=== PATIENT | male | born 1950 | race Caucasian/White ===

== ENCOUNTER 2016-04-22 13:01 | Inpatient (IN) | payer OTHER ==
[~2016-04-22] VITALS: Ht 185.4 cm; Wt 84.1 kg
[2016-04-22] MEDS ORDERED: ATORVASTATIN CA40 MG PO (13:22)
[2016-04-22] MEDS ORDERED: LO-DOSE ASPIRIN81 M2 PO (13:22)
[2016-04-22] MEDS ORDERED: LISINOPRIL20 MG PO (13:23)
[2016-04-22] MEDS ORDERED: CALCIUM 500 MG1 EACH PO (13:23)
[2016-04-22] MEDS ORDERED: VENTOLIN HFA18 GM IH (13:26)
[2016-04-22] MEDS ORDERED: OXYCODONE HCL30 MG PO (13:26)
[2016-04-22 13:38] LABS: HEMATOCRIT 36.1 % (38.0-50.0); MCH 31.9 PG (29.0-34.0); MCHC 33.8 G/DL (30.0-36.0); PLATELET COUNT 365 K/uL (156-360); RBC DIS.WIDTH-CV 12.4 % (11.8-14.6); RBC DIS.WIDTH-SD 41.5 % (39-53); RED BLOOD COUNT 3.82 M/uL (4.00-5.50); WHITE BLOOD COUNT 13.9 K/uL (4.1-10.2)
[2016-04-22 13:43] LABS: BASOPHIL COUNT 0.1 K/uL (0-0.1); EOSINOPHIL (%) 0 % (0-5); IMMATURE GRANULOCYTE (%) 0.4 % (0.0-0.7); IMMATURE GRANULOCYTE COUNT 0.5 K/uL; LYMPHOCYTE COUNT 2.3 K/uL (1.0-2.8); MONOCYTE COUNT 1.8 K/uL (0-0.8); NEUTROPHIL (%) 69.7 % (45-76); NEUTROPHIL COUNT 9.7 K/uL (1.8-6.4)
[2016-04-22 13:46] LABS: MCV 94.5 FL (86-99)
[2016-04-22 13:50] LABS: CHLORIDE 101 mEq/L (99-109); POTASSIUM 4.9 mEq/L (3.7-5.4); SODIUM 136 mEq/L (136-147)
[2016-04-22 13:51] LABS: GLUCOSE 123 mg/dL (70-99)
[2016-04-22 13:53] LABS: ANION GAP 10 MEQ/L (2-14)
[2016-04-22 13:55] LABS: GFR ESTIMATE (CALCULATED) > 59 mL/min/
[2016-04-22 13:56] LABS: UREA NITROGEN (BUN) 8 mg/dL (9-23)
[2016-04-22 14:02] LABS: TROP-I INTERPRETATION NEGATIVE; TROPONIN-I < 0.01 ng/mL (0.0-0.30)
[2016-04-22 15:01] LABS: TOTAL BILIRUBIN 0.5 mg/dL (0.0-1.0)
[2016-04-22 15:03] LABS: ALKALINE PHOSPHATASE 101 IU/L (3-129)
[2016-04-22 15:05] LABS: DIRECT BILIRUBIN 0.3 mg/dL (0.0-0.3)
[2016-04-22] MEDS ORDERED: ZINC50 M1 PO (16:35)
[2016-04-22] MEDS ORDERED: MAGNESIUM OXID500 MG PO (16:36)
[2016-04-22 17:03] LABS: INFLUENZA A VIRAL ANTIGEN NEGATIVE; INFLUENZA B VIRAL ANTIGEN NEGATIVE
[2016-04-22 22:24] VITALS: BP 163/74
[2016-04-23 01:20] LABS: TROP-I INTERPRETATION NEGATIVE; TROPONIN-I < 0.01 ng/mL (0.0-0.30)
[2016-04-23 03:24] VITALS: BP 135/73
[2016-04-23 06:44] LABS: HEMATOCRIT 31.4 % (38.0-50.0); MCH 32.1 PG (29.0-34.0); MCHC 33.8 G/DL (30.0-36.0); MCV 95.2 FL (86-99); MEAN PLAT.VOLUME 10.4 uM^3 (9.0-12.4); PLATELET COUNT 389 K/uL (156-360); RBC DIS.WIDTH-CV 12.5 % (11.8-14.6); RBC DIS.WIDTH-SD 43.4 % (39-53); WHITE BLOOD COUNT 16.8 K/uL (4.1-10.2)
[2016-04-23 07:09] LABS: ANION GAP 9 MEQ/L (2-14); CHLORIDE 101 MEQ/L (99-109); GFR ESTIMATE (CALCULATED) > 59 mL/min/; GLUCOSE 141 mg/dL (70-99); POTASSIUM 4.6 MEQ/L (3.7-5.4); SAMPLE HEMOLYSIS CHECK 0; SAMPLE ICTERIC CHECK 0; SAMPLE LIPEMIA CHECK 0; SODIUM 135 MEQ/L (136-147); UREA NITROGEN (BUN) 9 mg/dL (9-23)
[2016-04-23 07:13] LABS: TROP-I INTERPRETATION NEGATIVE; TROPONIN-I 0.01 ng/mL (0.0-0.30)
[2016-04-23 07:15] LABS: EOSINOPHIL (%) 0 % (0-5); IMMATURE GRANULOCYTE (%) 0.4 % (0.0-0.7); IMMATURE GRANULOCYTE COUNT 0.1 K/uL; LYMPHOCYTE COUNT 1.9 K/uL (1.0-2.8); MONOCYTE (%) 10.4 % (3-12); MONOCYTE COUNT 1.8 K/uL (0-0.8); NEUTROPHIL (%) 77.7 % (45-76); NEUTROPHIL COUNT 13.1 K/uL (1.8-6.4)
[2016-04-23 07:25] VITALS: BP 156/82
[2016-04-23 08:04] LABS: ADD MIUA? YES; BILIRUBIN NEGATIVE; BLOOD MODERATE; COLOR YELLOW ((YELLOW)); GLUCOSE (STRIP) NEGATIVE; KETONES NEGATIVE; LEUKOCYTES NEGATIVE; NITRITE NEGATIVE; PROTEIN (STRIP) NEGATIVE; SPECIFIC GRAVITY 1.018 (1.000-1.030); UROBILINOGEN 0.2 MG/DL (0.2-1.0)
[2016-04-23 08:51] LABS: BACTERIA NONE SEEN /HPF; EPITHELIAL CELLS RARE /HPF; MUCUS TRACE /LPF; UCUL ADDED? NO; WHITE BLOOD CELLS 0-5 /HPF (0-5)
[2016-04-23 09:11] LABS: INTERNAL CONTROL VALID? YES
[2016-04-23 11:30] VITALS: BP 138/71
[2016-04-23 12:51] LABS: BASE EXCESS 2.6 mEq/L (-3 to +3); BICARBONATE 26.2 mEq/L (22-26); CARBOXY HGB 1.8 % (0-5); COMMENTS - BLOOD GASES A+C+; METHEMOGLOBIN 1.7 % (0-1.5); PCO2 36 mm Hg (35-45); PO2 54 mm Hg (80-100); SITE RR; pH 7.47 (7.35-7.45)
[2016-04-23 12:52] LABS: DEVICE NC; O2 FLOW 3 L/MIN; TOTAL RESP RATE 22 resp/min
[2016-04-23 15:20] VITALS: BP 156/72
[2016-04-23 20:00] VITALS: BP 149/72
[2016-04-24] VITALS: BP 139/65
[2016-04-24 04:00] VITALS: BP 130/60
[2016-04-24 07:50] VITALS: BP 133/62
[2016-04-24 11:42] VITALS: BP 140/71
[2016-04-24 15:46] VITALS: BP 176/87
[2016-04-24 20:17] VITALS: BP 168/86
[2016-04-25] VITALS (7 sets, daily range): BP systolic 146–178; BP diastolic 69–89
[2016-04-25 03:59] LABS: MEAN PLAT.VOLUME 9.9 uM^3 (9.0-12.4); PLATELET COUNT 404 K/uL (156-360)
[2016-04-25 04:09] LABS: HEMATOCRIT 32.5 % (38.0-50.0); MCH 32.5 PG (29.0-34.0); MCHC 33.8 G/DL (30.0-36.0); MCV 96.2 FL (86-99); RBC DIS.WIDTH-CV 12.5 % (11.8-14.6); RBC DIS.WIDTH-SD 42.3 % (39-53); RED BLOOD COUNT 3.38 M/uL (4.00-5.50); WHITE BLOOD COUNT 31.3 K/uL (4.1-10.2)
[2016-04-25 04:10] LABS: CHLORIDE 105 mEq/L (99-109); POTASSIUM 4.6 mEq/L (3.7-5.4); SODIUM 140 mEq/L (136-147)
[2016-04-25 04:11] LABS: MAGNESIUM 2.1 mg/dL (1.3-2.7)
[2016-04-25 04:12] LABS: GLUCOSE 148 mg/dL (70-99)
[2016-04-25 04:13] LABS: ANION GAP 10 MEQ/L (2-14)
[2016-04-25 04:16] LABS: GFR ESTIMATE (CALCULATED) > 59 mL/min/
[2016-04-25 04:17] LABS: UREA NITROGEN (BUN) 13 mg/dL (9-23)
[2016-04-25 05:26] LABS: VANCOMYCIN, TROUGH 12.8 MCG/ML (10-20)
[2016-04-25 05:59] LABS: GFR ESTIMATE (CALCULATED) > 59 mL/min/
[2016-04-26] VITALS (9 sets, daily range): BP systolic 151–191; BP diastolic 74–94
[2016-04-26 04:03] LABS: HEMATOCRIT 32.3 % (38.0-50.0); MCH 32.2 PG (29.0-34.0); MCHC 33.7 G/DL (30.0-36.0); MCV 95.3 FL (86-99); PLATELET COUNT 420 K/uL (156-360); RBC DIS.WIDTH-CV 12.6 % (11.8-14.6); RBC DIS.WIDTH-SD 42.1 % (39-53); RED BLOOD COUNT 3.39 M/uL (4.00-5.50); WHITE BLOOD COUNT 28.2 K/uL (4.1-10.2)
[2016-04-26 04:06] LABS: EOSINOPHIL (%) 0 % (0-5); IMMATURE GRANULOCYTE (%) 0.5 % (0.0-0.7); IMMATURE GRANULOCYTE COUNT 1.4 K/uL; LYMPHOCYTE COUNT 1.6 K/uL (1.0-2.8); MONOCYTE (%) 2.8 % (3-12); MONOCYTE COUNT 0.8 K/uL (0-0.8); NEUTROPHIL (%) 90.8 % (45-76); NEUTROPHIL COUNT 25.7 K/uL (1.8-6.4)
[2016-04-26 04:13] LABS: CHLORIDE 103 mEq/L (99-109); POTASSIUM 4.3 mEq/L (3.7-5.4); SODIUM 137 mEq/L (136-147)
[2016-04-26 04:15] LABS: GLUCOSE 160 mg/dL (70-99)
[2016-04-26 04:16] LABS: ANION GAP 12 MEQ/L (2-14)
[2016-04-26 04:19] LABS: GFR ESTIMATE (CALCULATED) > 59 mL/min/; UREA NITROGEN (BUN) 14 mg/dL (9-23)
[2016-04-27 06:59] LABS: ANION GAP 9 MEQ/L (2-14); CHLORIDE 100 MEQ/L (99-109); EOSINOPHIL (%) 0 % (0-5); GFR ESTIMATE (CALCULATED) > 59 mL/min/; GLUCOSE 157 mg/dL (70-99); HEMATOCRIT 29.9 % (38.0-50.0); IMMATURE GRANULOCYTE (%) 0.4 % (0.0-0.7); IMMATURE GRANULOCYTE COUNT 0.1 K/uL; LYMPHOCYTE COUNT 1.5 K/uL (1.0-2.8); MCH 32.6 PG (29.0-34.0); MCHC 34.1 G/DL (30.0-36.0); MCV 95.5 FL (86-99); MEAN PLAT.VOLUME 10.3 uM^3 (9.0-12.4); MONOCYTE (%) 3.9 % (3-12); MONOCYTE COUNT 0.8 K/uL (0-0.8); NEUTROPHIL (%) 88.5 % (45-76); NEUTROPHIL COUNT 17.9 K/uL (1.8-6.4); PLATELET COUNT 385 K/uL (156-360); POTASSIUM 4.7 MEQ/L (3.7-5.4); RBC DIS.WIDTH-CV 12.8 % (11.8-14.6); RBC DIS.WIDTH-SD 44.7 % (39-53); RED BLOOD COUNT 3.13 M/uL (4.00-5.50); SAMPLE HEMOLYSIS CHECK 0; SAMPLE ICTERIC CHECK 0; SAMPLE LIPEMIA CHECK 0; SODIUM 137 MEQ/L (136-147); UREA NITROGEN (BUN) 17 mg/dL (9-23); WHITE BLOOD COUNT 20.3 K/uL (4.1-10.2)
[2016-04-27 07:38] VITALS: BP 163/79
[2016-04-27 11:43] VITALS: BP 153/77
[2016-04-27 15:33] VITALS: BP 165/80
[2016-04-27 19:45] VITALS: BP 168/84
[2016-04-27 23:30] VITALS: BP 135/65
[2016-04-28 04:30] VITALS: BP 126/69
[2016-04-28 06:49] VITALS: BP 162/73
[2016-04-28 06:56] LABS: EOSINOPHIL (%) 0 % (0-5); HEMATOCRIT 29.8 % (38.0-50.0); IMMATURE GRANULOCYTE (%) 0.8 % (0.0-0.7); IMMATURE GRANULOCYTE COUNT 0.2 K/uL; INSTRUMENT ABS NEUTROPHIL CT 17.1 K/uL; MCH 31.7 PG (29.0-34.0); MCHC 33.2 G/DL (30.0-36.0); MCV 95.5 FL (86-99); MEAN PLAT.VOLUME 10.3 uM^3 (9.0-12.4); MONOCYTE (%) 3.9 % (3-12); MONOCYTE COUNT 0.8 K/uL (0-0.8); NEUTROPHIL (%) 80.8 % (45-76); NEUTROPHIL COUNT 17.1 K/uL (1.8-6.4); PLATELET COUNT 384 K/uL (156-360); RBC DIS.WIDTH-CV 12.6 % (11.8-14.6); RBC DIS.WIDTH-SD 43.8 % (39-53); RED BLOOD COUNT 3.12 M/uL (4.00-5.50); WHITE BLOOD COUNT 21.1 K/uL (4.1-10.2)
[2016-04-28 11:42] VITALS: BP 150/78
[2016-04-28 15:57] VITALS: BP 141/77
[2016-04-28] MEDS ORDERED: ADVAIR HFA120 INHALA IH (16:36)
[2016-04-28] MEDS ORDERED: LEVOFLOXACIN500 MG PO (16:36)
[2016-04-28] MEDS ORDERED: PREDNISONE10 MG PO (16:36)
[2016-04-28] MEDS ORDERED: SPIRIVA RESPIMAT4 GM IH (16:36)
[2016-04-28] MEDS ORDERED: LISINOPRIL40 MG PO (16:36)
== END 2016-04-28 20:00 | disposition home or self-care (01) | DRG 189 ==
LOC: EME 13:01 → 2EAST 20:58 → EDOF 20:58 → 2EAST 22:21
PROVIDERS: Emergency Medicine; Hospitalist; Internal Medicine; Physician Assistant
DX: J96.01 Acute respiratory failure with hypoxia (principal); J44.0 Chronic obstructive pulmonary disease with (acute) lower respiratory infection; J15.9 Unspecified bacterial pneumonia; J44.1 Chronic obstructive pulmonary disease with (acute) exacerbation; B37.0 Candidal stomatitis; D64.9 Anemia, unspecified; R91.8 Other nonspecific abnormal finding of lung field; R31.29 Other microscopic hematuria; I10 Essential (primary) hypertension; E78.00 Pure hypercholesterolemia, unspecified; G89.29 Other chronic pain; F17.210 Nicotine dependence, cigarettes, uncomplicated; Z79.82 Long term (current) use of aspirin
CPT/HCPCS: 36600; 71010; 71020; 71275; 80048; 80076; 80198; 80202; 81003; 82565; 82803; 83605; 83735; 83880; 84484; 85025; 85027; 87040; 87070; 87077; 87106; 87205; 87449; 87502; 87801; 93005; 93306; 94640; 94640 76; 94667; 94668; 94760; 94799; 99202; 99281; 99285; J0456; J0692; J0696; J1100; J1644; J2060; J2270; J2405; J2920; J2930; J3370; J7030; J7050; J7512

== ENCOUNTER 2016-06-17 20:43 | Observation (INO) | payer OTHER ==
[~2016-06-17] VITALS: Ht 182.9 cm; Wt 87.0 kg
[~2016-06-17 20:43] MED LIST: ADVAIR HFA120 INHALA IH; ATORVASTATIN CA40 MG PO; CALCIUM 500 MG1 EACH PO; LEVOFLOXACIN500 MG PO; LISINOPRIL20 MG PO; LISINOPRIL40 MG PO; LO-DOSE ASPIRIN81 M2 PO; MAGNESIUM OXID500 MG PO; OXYCODONE HCL30 MG PO; PREDNISONE10 MG PO; SPIRIVA RESPIMAT4 GM IH; VENTOLIN HFA18 GM IH; ZINC50 M1 PO
[2016-06-17 21:22] LABS: EOSINOPHIL (%) 0.1 % (0-5); HEMATOCRIT 29.3 % (38.0-50.0); IMMATURE GRANULOCYTE (%) 0.1 % (0.0-0.7); INSTRUMENT ABS NEUTROPHIL CT 4.1 K/uL; LYMPHOCYTE COUNT 4.7 K/uL (1.0-2.8); MCH 32.9 PG (29.0-34.0); MCHC 34.1 G/DL (30.0-36.0); MCV 96.4 FL (86-99); MEAN PLAT.VOLUME 8.7 uM^3 (9.0-12.4); MONOCYTE (%) 8.7 % (3-12); MONOCYTE COUNT 0.8 K/uL (0-0.8); NEUTROPHIL (%) 42.1 % (45-76); NEUTROPHIL COUNT 4.1 K/uL (1.8-6.4); PLATELET COUNT 314 K/uL (156-360); RBC DIS.WIDTH-CV 13.2 % (11.8-14.6); RBC DIS.WIDTH-SD 47.4 % (39-53); RED BLOOD COUNT 3.04 M/uL (4.00-5.50); WHITE BLOOD COUNT 9.7 K/uL (4.1-10.2)
[2016-06-17 21:32] LABS: PTT 28.2 (25-32)
[2016-06-17 21:33] LABS: CHLORIDE 104 mEq/L (99-109); POTASSIUM 4.2 mEq/L (3.7-5.4); SODIUM 138 mEq/L (136-147)
[2016-06-17 21:34] LABS: GLUCOSE 107 mg/dL (70-99)
[2016-06-17 21:36] LABS: ANION GAP 13 MEQ/L (2-14)
[2016-06-17 21:38] LABS: GFR ESTIMATE (CALCULATED) > 59 mL/min/
[2016-06-17 21:39] LABS: UREA NITROGEN (BUN) 16 mg/dL (9-23)
[2016-06-17 21:43] LABS: TROP-I INTERPRETATION NEGATIVE; TROPONIN-I < 0.01 ng/mL (0.0-0.30)
[2016-06-17 22:22] LABS: HDL CHOLESTEROL 33 MG/DL (Desirable>=40); NON-HDL CHOLESTEROL 98 mg/dL (Desirable<160); TOTAL CHOLESTEROL 131 mg/dL (Desirable<200); TRIGLYCERIDES 475 MG/DL (Normal: <150)
[2016-06-17] MEDS ORDERED: INCRUSE ELLI62.5 MCG IH (23:03)
[2016-06-17 23:43] LABS: ADD MIUA? YES; BILIRUBIN NEGATIVE; BLOOD MODERATE; COLOR YELLOW ((YELLOW)); GLUCOSE (STRIP) NEGATIVE; KETONES NEGATIVE; LEUKOCYTES NEGATIVE; NITRITE NEGATIVE; PROTEIN (STRIP) NEGATIVE; SPECIFIC GRAVITY 1.006 (1.000-1.030); UROBILINOGEN 0.2 MG/DL (0.2-1.0)
[2016-06-17 23:46] LABS: BACTERIA RARE /HPF; EPITHELIAL CELLS RARE /HPF; MUCUS NONE SEEN /LPF; RED BLOOD CELLS 0-5 /HPF (0-5); UCUL ADDED? NO; WHITE BLOOD CELLS 0-5 /HPF (0-5)
[2016-06-18 05:05] VITALS: BP 163/73
[2016-06-18 06:29] VITALS: BP 110/58
[2016-06-18 07:17] VITALS: BP 100/56
[2016-06-18 11:50] VITALS: BP 140/65
[2016-06-18 15:04] VITALS: BP 139/73
[2016-06-18] MEDS ORDERED: LISINOPRIL20 MG PO (15:19)
[2016-06-18] MEDS ORDERED: LO-DOSE ASPIRIN81 M2 PO (15:19)
[2016-06-19 06:40] LABS: Estimated Average Glucose 126 mg/dL (70-123)
== END 2016-06-18 16:07 | disposition home or self-care (01) ==
LOC: EME → EDBD 20:43 → EME 20:43 → EDOF 06-18 03:30 → 5WEST 06-18 04:47
PROVIDERS: Emergency Medicine
DX: G45.9 Transient cerebral ischemic attack, unspecified (principal); I70.201 Unspecified atherosclerosis of native arteries of extremities, right leg; R55 Syncope and collapse; I35.0 Nonrheumatic aortic (valve) stenosis; I10 Essential (primary) hypertension; J44.9 Chronic obstructive pulmonary disease, unspecified; G89.29 Other chronic pain; F17.200 Nicotine dependence, unspecified, uncomplicated
CPT/HCPCS: 70450; 70551; 71010; 72110; 80048; 80061; 81003; 83036; 84484; 85025; 85610; 85730; 93005; 93880; 93926; 93971; 94640; 99202; 99281; 99285; G0378; J1644; J2270; J7030

== ENCOUNTER 2016-07-19 09:59 | Inpatient (IN) | payer OTHER ==
[~2016-07-19] VITALS: Ht 185.4 cm; Wt 87.5 kg
[2016-07-19] VITALS (7 sets, daily range): BP systolic 96–142; BP diastolic 53–88
[~2016-07-19 09:59] MED LIST changes: +ATIVAN0.5 MG PO; +INCRUSE ELLI62.5 MCG IH; +LIPITOR40 MG PO; +LITE COAT ASPI325 M1 PO; +PLAVIX75 MG PO; +ZESTRIL20 MG PO
[2016-07-19 19:24] LABS: METH RESISTANT S AUREUS PCR NEGATIVE (NEGATIVE)
[2016-07-19 19:25] LABS: PROBE CHECK PASS; SPECIMEN PROCESSING CONTROL PASS
[2016-07-20] VITALS (11 sets, daily range): BP systolic 100–127; BP diastolic 48–69
[2016-07-20 04:51] LABS: HEMATOCRIT 25.5 % (38.0-50.0); MCH 33.1 PG (29.0-34.0); MCHC 33.7 G/DL (30.0-36.0); MCV 98.1 FL (86-99); MEAN PLAT.VOLUME 9.4 uM^3 (9.0-12.4); PLATELET COUNT 245 K/uL (156-360); RBC DIS.WIDTH-CV 12.9 % (11.8-14.6); RBC DIS.WIDTH-SD 46.1 % (39-53); WHITE BLOOD COUNT 13.1 K/uL (4.1-10.2)
[2016-07-20 05:13] LABS: TROP-I INTERPRETATION NEGATIVE; TROPONIN-I < 0.01 ng/mL (0.0-0.30)
== END 2016-07-20 15:15 | disposition home or self-care (01) | DRG 38 ==
LOC: 2SOUTH 09:59 → 4WEST 16:36
PROVIDERS: Surgery
DX: I65.21 Occlusion and stenosis of right carotid artery (principal); I97.618 Postprocedural hemorrhage of a circulatory system organ or structure following other circulatory system procedure; I10 Essential (primary) hypertension; J44.9 Chronic obstructive pulmonary disease, unspecified; E78.4 Other hyperlipidemia; Z87.39 Personal history of other diseases of the musculoskeletal system and connective tissue
CPT/HCPCS: 73630; 84484; 85027; 86900; 86901; 87641; 88300; 93005; 99202; C1768; J0330; J0690; J1100; J1170; J1644; J2250; J2405; J2720; J3010; J7120; S0020